=== PATIENT | male | born 1935 | race Caucasian/White ===

== ENCOUNTER 2017-10-27 12:48 | Inpatient (IN) | payer OTHER ==
[~2017-10-27] VITALS: Ht 170.2 cm; Wt 74.8 kg
--- NOTE | ~2017-10-27 | O ---
[facility] [place] [address] OPERATIVE REPORT Name: BRIGID ORTIZ Room #: 220-P [facility] IN M.R.#: [id number] Admission: 10/27/17 Attend Phys: Juan Briseno MD Discharge: Date of : 39 Report #: [id number] THIS REPORT FOR: //name// CC: FAM unknown Juan Briseno DATE OF SERVICE: 10/30/2017 PREOPERATIVE DIAGNOSIS: Left small finger infection. POSTOPERATIVE DIAGNOSIS: Left small finger infection. PROCEDURE PERFORMED: Left small finger debridement of skin, subcutaneous tissue and the PIP joint. SURGEON: Dr. Riddhi Reynoso. ANESTHESIA: General mask anesthesia. ESTIMATED BLOOD LOSS: 1 mL. TOURNIQUET TIME: 11 minutes. COMPLICATIONS: None. CONDITION: Stable. DISPOSITION: Recovery room. INDICATIONS: The patient is an 82-year-old male who sustained a wound to his left small finger approximately 5 days ago. He was seen in the Emergency Department. It was cleaned out and the wound was closed. He subsequently developed increased redness, swelling and pain, had a bedside debridement, but had persistent pain and redness. In the preoperative holding area, he had a loosely reapproximated wound edges with significant amount of erythema over the proximal phalanx. He was distally neurovascularly intact with gross motion. No tenderness specifically along the flexor tendons. There were some necrotic skin edges noted. I discussed the diagnosis as well as recommendation for more formal debridement in the operating room and he elected to proceed. We discussed the risks, benefits, alternatives and complications including but not limited to inability to resolve the infection requiring more surgery, damage to blood vessels or nerves and wound healing problems as well as stiffness. Informed consent was obtained. The correct extremity was identified and labeled by myself after verbal confirmation with the patient as well as visual confirmation and signed informed consent. [address] [address] OPERATIVE REPORT Name: BRIGID ORTIZ Room #: 220-P [facility] IN ..#: [id number] Admission: 10/27/17 Attend Phys: Juan Briseno MD Discharge: Date of : 37 Report #: [id number] DESCRIPTION OF PROCEDURE: The patient was brought back to the operative room and placed on the operating table in supine position. He underwent general anesthesia. The left upper extremity was sterilely prepped and draped in the usual fashion. A final timeout was taken to verify correct patient, operative procedure, operative site, all concurred. The arm was elevated, but was not exsanguinated and the tourniquet inflated. Next, the sutures were removed. There was some small amount of purulent fluid deep on the ulnar side of the small finger at the proximal phalanx level. A swab was used to take the culture as well as tissue was sent for culture as well in a specimen cup. The area was thoroughly debrided. The skin and any necrotic skin edges were debrided. There was a communication with the PIP joint. This was debrided with a rongeur as well. After thorough debridement, the wound was thoroughly irrigated using angiocatheter and a liter of antibiotic saline. Once the wound was cleaned distally, the wound was closed with a single 4-0 nylon stitch closer to the PIP joint. The remainder of the wound was left open in order to facilitate drainage. The wound was then covered with dry gauze. The tourniquet was deflated. All fingers were pink with brisk capillary refill at the conclusion of the case after deflation of the tourniquet and after application of the dressing. All sponge, needle counts were correct. The patient transferred postop recovery room in stable condition. By: [id number] Riddhi Reynoso MD /nt
--- NOTE | ~2017-10-27 | HC ---
[facility] [place] [address] CONSULTATION Name: BRIGID ORTIZ Room #: 220-P ADM IN M.R.#: [id number] Admission: 10/27/17 Attend Phys: Juan Briseno MD Discharge: Date of : 37 Report #: [id number] THIS REPORT FOR: //name// CC: FAM unknown Juan Briseno REASON FOR CONSULTATION: I was asked to evaluate concerning left finger soft tissue infection. HISTORY OF PRESENT ILLNESS: The patient is an 82-year-old who was working on a large mower in a workshed when the mower plate fell on his left fifth finger causing a full thickness laceration. He was seen in the outpatient clinic at [facility]. Tetanus immunization was given. Wound was cleansed and sutured closed. Dismissed on cephalexin. Returns now with increased pain and swelling in the finger as well as up his arm. No fever, chills or sweats. No nausea, vomiting or diarrhea. No history of immunosuppression, tobacco use or diabetes. ALLERGIES: CODEINE AND PENICILLIN WITH HIVES. DOES TOLERATE CEPHALOSPORINS. MEDICATIONS: Included Plavix, Zestril, Crestor, Claritin and was given vancomycin and clindamycin here in the Emergency Room and now hospital stay. PAST MEDICAL HISTORY: Hypertension, hyperlipidemia, cataract, spine surgery, stroke. FAMILY HISTORY: Noncontributory. SOCIAL HISTORY: Nonsmoker, no significant alcohol intake. REVIEW OF SYSTEMS: No cardiopulmonary, GI or complaints. PHYSICAL EXAMINATION: VITAL SIGNS: Afebrile and hemodynamically stable. GENERAL: Alert and cooperative. HEENT: Unremarkable. CHEST: Clear. HEART: Regular. ABDOMEN: Soft. EXTREMITIES: Left fifth finger with a suture along the lateral aspect of the proximal and middle phalanx. There was 2+ swelling. Significant tenderness along the lateral finger and into the lateral hand. 2+ swelling. Erythema extending over the dorsum of his finger into his hand. [place] from last evening note that the erythema had extended up his forearm. Sensation was intact. Capillary refill was adequate. Range of motion was limited. No axillary adenopathy. [facility] [address] [place] [address] CONSULTATION Name: BRIGID ORTIZ Room #: 220-P [facility] IN .R.#: [id number] Admission: 10/27/17 Attend Phys: Juan Briseno MD Discharge: Date of : 37 Report #: [id number] LABORATORY STUDIES: MRI scan of the hand shows increased signal in the proximal and middle phalanges of the fifth digit due to stress injury or reactive hyperemia. No fracture seen. Metallic artifact was noted along the dorsal aspect of the hand between the fourth and fifth distal metacarpals. There was no foreign body seen in the fifth digit. No evidence of abscess was identified. LABORATORY STUDIES: Sodium 137, potassium 4, bicarbonate 29, creatinine 1, hemoglobin 13.6, white count 10.8, platelet count 187,000. Differential unremarkable. IMPRESSION: An 82-year-old with extensive soft tissue injury, left fifth finger. Now with soft tissue infection. PLAN: Would recommend opening the current incision and allowing appropriate drainage. Cultures may be obtained at that time. Given the nature of his injury, we will add gram-negative coverage. <ELECTRONICALLY SIGNED> By: Dino Rojas MD 10/29/17 1211 [id number] Dino Rojas MD /nt
[2017-10-27 13:00] VITALS: BP 116/60
[2017-10-27 14:27] LABS: ABSOLUTE NEUTROPHILS 7.4 thou/uL (1.4-8.2); BASOPHILS 0.4 % (0.0-2.0); EOSINOPHILS 1.6 % (0.0-3.0); HEMOGLOBIN 13.6 gm/dL (14.0-18.0); LYMPHOCYTES 17.6 % (24.0-44.0); MCH 32.9 pg (26.0-34.0); MCV 96.8 fL (80.0-100.0); MONOCYTES 11.9 % (1.0-8.0); PLATELET COUNT 187 thou/uL (150-400); POLYS 68.5 % (36.0-66.0); RBC 4.13 mil/uL (4.50-6.00); RDW 13.5 % (10.5-14.5); WBC 10.8 thou/uL (4.0-11.0)
[2017-10-27 15:40] VITALS: BP 116/60
[2017-10-27 16:17] LABS: CALCIUM 8.9 mg/dL (8.5-10.1)
[2017-10-27 16:19] VITALS: BP 116/64
[2017-10-27 16:21] LABS: ALBUMIN 3.9 g/dL (3.4-5.0); TOTAL BILIRUBIN 0.8 mg/dL (<0.1-1.0); TOTAL PROTEIN 7.5 g/dL (6.4-8.2)
[2017-10-27 19:51] VITALS: BP 118/60
[2017-10-27] MEDS ORDERED: PLAVIX 75 MG TA75 M1 PO (20:59)
[2017-10-27] MEDS ORDERED: LISINOPRIL10 MG PO (21:00)
[2017-10-27] MEDS ORDERED: CRESTOR20 MG PO (21:01)
[2017-10-27] MEDS ORDERED: CLARITIN10 MG PO (21:05)
[2017-10-28 04:40] VITALS: BP 104/59
[2017-10-28 07:15] VITALS: BP 101/63
[2017-10-28 20:30] VITALS: BP 136/81
[2017-10-29 08:13] VITALS: BP 148/80
[2017-10-29 08:21] LABS: HEMATOCRIT 37.5 % (42.0-52.0); HEMOGLOBIN 12.8 gm/dL (14.0-18.0); MCHC 34.1 g/dL (28.0-37.0); MCV 96.9 fL (80.0-100.0); RBC 3.87 mil/uL (4.50-6.00); RDW 13.3 % (10.5-14.5); WBC 7.8 thou/uL (4.0-11.0)
[2017-10-29 08:30] LABS: CALCIUM 8.6 mg/dL (8.5-10.1); MAGNESIUM 2.1 mg/dL (1.8-2.4); POTASSIUM 3.8 mmol/L (3.5-5.1)
[2017-10-29 19:34] VITALS: BP 119/71
[2017-10-30] VITALS (10 sets, daily range): BP systolic 129–165; BP diastolic 66–89
[2017-10-31 00:15] VITALS: BP 113/65
[2017-10-31 04:15] VITALS: BP 131/68
[2017-10-31 08:12] VITALS: BP 134/69
[2017-10-31] MEDS ORDERED: HYDROCODON-ACE1 EAC7 PO (13:52)
[2017-10-31 14:05] VITALS: BP 134/69
[2017-10-31] MEDS ORDERED: CIPROFLOXACIN250 M2 PO (15:18)
[2017-10-31] MEDS ORDERED: CUBICIN500 MG IVPB (15:18)
[2017-11-02] MEDS ORDERED: CEFAZOLIN1 GM/50 M1 IV (13:46)
[2017-11-02] MEDS ORDERED: B-100 COMPLEX100 MG PO (13:47)
[2017-11-02] MEDS ORDERED: CENTRUM SILVER1 EAC2 PO (13:47)
[2017-11-02] MEDS ORDERED: PROBIOTIC1 EAC4 PO (13:48)
[2017-11-02] MEDS ORDERED: [UNRECOGNIZED DRUG - OTHER] PO (13:49)
[2017-11-02] MEDS ORDERED: SALMON OIL 1,01 EACH PO (13:50)
[2017-11-02] MEDS ORDERED: [UNRECOGNIZED DRUG - OTHER] PO (13:51)
[2017-11-02] MEDS ORDERED: VITAMIN D32000 UNI1 PO (13:52)
[2017-11-02] MEDS ORDERED: VITA PULSE PO (13:53)
[2017-11-02] MEDS ORDERED: COQ PO (13:53)
[2017-11-02] MEDS ORDERED: GUMMI BEAR MUL1 EAC1 PO (13:54)
== END 2017-10-31 16:46 | disposition home or self-care (01) | DRG 581 ==
LOC: ER 12:48 → SICU 15:04 → EROBS 15:04 → 4E 16:27 → SICU 10-28 16:23 → ENTRNSPT 10-31 16:37 → SICU 10-31 16:46
PROVIDERS: Emergency Medicine; Internal Medicine
PROC: 0JBK0ZZ Excision of Left Hand Subcutaneous Tissue and Fascia, Open Approach (ICD-10-PCS; principal; 2017-10-30)
DX: S61.217A Laceration without foreign body of left little finger without damage to nail, initial encounter (principal); L03.012 Cellulitis of left finger; K59.00 Constipation, unspecified; I10 Essential (primary) hypertension; E78.5 Hyperlipidemia, unspecified; Z86.73 Personal history of transient ischemic attack (TIA), and cerebral infarction without residual deficits; W31.89XA Contact with other specified machinery, initial encounter; Y93.89 Activity, other specified; Y92.89 Other specified places as the place of occurrence of the external cause; Y99.8 Other external cause status; Z88.0 Allergy status to penicillin; Z79.02 Long term (current) use of antithrombotics/antiplatelets; Z79.899 Other long term (current) drug therapy; Z88.5 Allergy status to narcotic agent
CPT/HCPCS: 10084; 15002; 27000; 50010; 50101; 50386; 57006; 57091; 62110; 62900; 70005

== ENCOUNTER → 2017-11-01 | Outpatient (CLI) | payer OTHER ==
[~2017-11-01] MED LIST: B-100 COMPLEX100 MG PO; CEFAZOLIN1 GM/50 M1 IV; CENTRUM SILVER1 EAC2 PO; CIPROFLOXACIN250 M2 PO; CLARITIN10 MG PO; COQ PO; CRESTOR20 MG PO; CUBICIN500 MG IVPB; GUMMI BEAR MUL1 EAC1 PO; HYDROCODON-ACE1 EAC7 PO; LISINOPRIL10 MG PO; PLAVIX 75 MG TA75 M1 PO; PROBIOTIC1 EAC4 PO; SALMON OIL 1,01 EACH PO; VITA PULSE PO; VITAMIN D32000 UNI1 PO; [UNRECOGNIZED DRUG - OTHER] PO; [UNRECOGNIZED DRUG - OTHER] PO
[2017-11-01 10:30] VITALS: BP 119/60
[2017-11-01 11:25] VITALS: BP 119/60
== END ==
LOC: OPONC 00:14
DX: L03.012 Cellulitis of left finger (principal)
CPT/HCPCS: 95000

== ENCOUNTER → 2017-11-02 | Outpatient (CLI) | payer OTHER ==
[2017-11-02 10:45] VITALS: BP 118/47
== END ==
LOC: OPONC 08:44
DX: L03.012 Cellulitis of left finger (principal)
CPT/HCPCS: 95000

== ENCOUNTER → 2017-11-03 | Outpatient (CLI) | payer OTHER ==
[2017-11-03 09:35] VITALS: BP 115/53
== END ==
LOC: OPONC 08:13
DX: L03.012 Cellulitis of left finger (principal)
CPT/HCPCS: 95000

== ENCOUNTER → 2017-11-11 | Outpatient (CLI) | payer OTHER | LOC: OPONC 08:45 | DX: L03.012 Cellulitis of left finger (principal) | CPT/HCPCS: 95000 ==

== ENCOUNTER → 2017-11-12 | Outpatient (CLI) | payer OTHER | LOC: OPONC 08:30 | DX: L03.012 Cellulitis of left finger (principal) | CPT/HCPCS: 95000 ==

== ENCOUNTER → 2017-11-13 | Outpatient (CLI) | payer OTHER ==
[2017-11-13 09:12] LABS: HEMOGLOBIN 13.3 gm/dL (14.0-18.0); MCH 32.7 pg (26.0-34.0); MCV 96.2 fL (80.0-100.0); RBC 4.06 mil/uL (4.50-6.00); WBC 5.7 thou/uL (4.0-11.0)
[2017-11-13 09:25] LABS: ALBUMIN 3.7 g/dL (3.4-5.0); CALCIUM 8.8 mg/dL (8.5-10.1); CREATININE 0.9 mg/dL (0.7-1.3); TOTAL BILIRUBIN 0.4 mg/dL (<0.1-1.0); TOTAL PROTEIN 6.8 g/dL (6.4-8.2)
[2017-11-13 12:45] VITALS: BP 110/59
== END ==
LOC: OPONC 01:03
PROVIDERS: Specialist
DX: L03.012 Cellulitis of left finger (principal)
CPT/HCPCS: 95000

== ENCOUNTER → 2017-11-14 | Outpatient (CLI) | payer OTHER ==
[2017-11-14 08:08] VITALS: BP 117/60
== END ==
LOC: OPONC 00:35
DX: L03.012 Cellulitis of left finger (principal)
CPT/HCPCS: 95000

== ENCOUNTER → 2017-11-15 | Outpatient (CLI) | payer OTHER ==
[2017-11-15 09:21] VITALS: BP 107/63
[2017-11-15 09:30] VITALS: BP 107/63
== END ==
LOC: OPONC 00:13
DX: L03.012 Cellulitis of left finger (principal)
CPT/HCPCS: 95000

== ENCOUNTER → 2017-11-16 | Outpatient (CLI) | payer OTHER ==
[2017-11-16 09:04] VITALS: BP 106/63
[2017-11-16 09:44] VITALS: BP 106/63
== END ==
LOC: OPONC 00:43
DX: L03.012 Cellulitis of left finger (principal)
CPT/HCPCS: 95000

== ENCOUNTER → 2017-11-17 | Outpatient (CLI) | payer OTHER ==
[2017-11-17 13:47] VITALS: BP 104/52
== END ==
LOC: OPONC 07:46
DX: L03.012 Cellulitis of left finger (principal)
CPT/HCPCS: 95000

== ENCOUNTER → 2017-11-18 | Outpatient (CLI) | payer OTHER | LOC: OPONC 08:48 | DX: L03.012 Cellulitis of left finger (principal) | CPT/HCPCS: 95000 ==

== ENCOUNTER → 2017-11-19 | Outpatient (CLI) | payer OTHER | LOC: OPONC 08:48 | DX: L03.012 Cellulitis of left finger (principal) | CPT/HCPCS: 95000 ==

== ENCOUNTER → 2017-11-20 | Outpatient (CLI) | payer OTHER | LOC: OPONC 00:17 | DX: L03.012 Cellulitis of left finger (principal) | CPT/HCPCS: 95000 ==

== ENCOUNTER → 2017-11-21 | Outpatient (CLI) | payer OTHER ==
[2017-11-21 09:00] VITALS: BP 108/60
[2017-11-21 09:20] LABS: HEMATOCRIT 39.3 % (42.0-52.0); HEMOGLOBIN 13.2 gm/dL (14.0-18.0); MCH 32.8 pg (26.0-34.0); MCHC 33.7 g/dL (28.0-37.0); MCV 97.2 fL (80.0-100.0); RBC 4.04 mil/uL (4.50-6.00); RDW 13.2 % (10.5-14.5)
[2017-11-21 09:31] LABS: ALBUMIN 3.7 g/dL (3.4-5.0); CALCIUM 8.9 mg/dL (8.5-10.1); CREATININE 0.9 mg/dL (0.7-1.3); POTASSIUM 3.9 mmol/L (3.5-5.1); TOTAL BILIRUBIN 0.5 mg/dL (<0.1-1.0); TOTAL PROTEIN 6.7 g/dL (6.4-8.2)
== END ==
LOC: OPONC 00:24
PROVIDERS: Specialist
DX: L03.012 Cellulitis of left finger (principal)
CPT/HCPCS: 95000

== ENCOUNTER → 2017-11-22 | Outpatient (CLI) | payer OTHER ==
[2017-11-22 09:30] VITALS: BP 107/58
== END ==
LOC: OPONC 00:19
DX: L03.012 Cellulitis of left finger (principal)
CPT/HCPCS: 95000

== ENCOUNTER → 2017-11-23 | Outpatient (CLI) | payer OTHER ==
[2017-11-23 15:06] VITALS: BP 107/66
== END ==
LOC: OPONC 01:40
DX: L03.012 Cellulitis of left finger (principal)
CPT/HCPCS: 95000